=== PATIENT | female | born 1990 | race Caucasian/White ===

== ENCOUNTER 2023-09-22 05:29 | Day surgery (SDC) | payer OTHER ==
[2023-09-18 11:35] LABS: HEMATOCRIT 45.5 % (36.0-45.00); MEAN CELL VOLUME 90.8 fL (80.00-100.00); MEAN CORPUSCULAR HEMOGLOBIN 31.8 pg (27.00-32.0); PLATELET COUNT 237 K/uL (150-450); RED BLOOD COUNT 5.02 M/uL (4.00-6.00); RED CELL DISTRIBUTION WIDTH 12.5 % (11.5-14.5)
[2023-09-18 11:37] LABS: PH,URINE 6.5 (5.0-8.0); URINE APPEARANCE Clear; URINE BILIRRUBIN Negative (NEGATIVE); URINE BLOOD Negative; URINE COLOR Yellow; URINE GLUCOSE Negative (NEGATIVE); URINE LEUKOCYTE Small; URINE NITRATE Negative; URINE PROTEIN Negative (NEGATIVE); URINE UROBILINOGEN 0.2 E.U./dl
[2023-09-18 11:38] LABS: URINE BACTERIA 406.9 uL (0.0-1933); URINE EPITHELIAL CELLS 17.4 uL (0.0-38.8); URINE RBC 5.1 uL (0.0-20.8); URINE WBC 10.3 uL (0.0-23.2)
[2023-09-18 12:10] LABS: INR 1.01; PARTIAL THROMBOPLASTIN TIME 23.2 SECONDS (22.0-34.0); PROTHROMBIN TIME 10.6 SECONDS (9.0-11.5)
[2023-09-18 12:14] LABS: ALBUMIN 4.9 gm/dL (3.4-5.0); BILIRUBIN TOTAL 0.86 mg/dL (0.3-1.2); CALCIUM 9.6 mg/dL (8.5-10.1); CREATININE SERUM 0.68 mg/dL (0.55-1.02); GFR 98.46; GLOBULINA 3.4 G/DL (2.4-3.5); POTASSIUM 3.87 mEq/L (3.5-5.1); TOTAL PROTEIN 8.3 gm/dL (6.4-8.2)
[~2023-09-22 05:29] MED LIST: CLARITIN10 MG PO; CONEX TABLET1 EACH PO; FLONASE16 GM; FLOVENT HFA12 GM IH; MEDROL4 MG PO; PEPCID AC20 MG PO; TUSSIONEX PENNKI5 ML PO; XOPENEX1.25 MG/0. IH
[2023-09-22] MEDS ORDERED: POVIDONE-IODINE 118 ML BOTT TOP ONE (09:04)
[2023-09-22] MEDS ORDERED: LIDOCAINE HCL 1%/Epi 20ML VIAL IJ ONE (09:15)
[2023-09-22] MEDS ORDERED: LIDOCAINE HCL/EPINEPHRINE 10 ML VIAL IJ SCH (10:00)
[2023-09-22] MEDS ORDERED: POVIDONE-IODINE 118 ML BOTT TOP SCH (10:00)
[2023-09-22] MEDS ORDERED: MORPHINE SULFATE 4 MG/ML VIAL IV PRN (10:45)
[2023-09-22] MEDS ORDERED: KETOROLAC TROMETHAMINE 30 MG VIAL IV PRN (11:00)
[2023-09-22] MEDS ORDERED: PROMETHAZINE HCL 50 MG/ML AMPUL IV PRN (11:00)
[2023-09-22] MEDS ORDERED: KETOROLAC TROMETHAMINE 30 MG VIAL ONE (12:53)
== END 2023-09-22 17:00 | disposition home or self-care (01) ==
LOC: CIR.AMB 05:29
PROVIDERS: ATTEND Student in an Organized Health Care Education/Training Program
DX: D06.9 Carcinoma in situ of cervix, unspecified (principal); N85.00 Endometrial hyperplasia, unspecified; Z88.1 Allergy status to other antibiotic agents